=== PATIENT | female | born 1975 | race Two or more races ===

== ENCOUNTER 2017-06-26 09:13 | Emergency (ER) | payer OTHER ==
[~2017-06-26] VITALS: Ht 160 cm; Wt 56.7 kg
[~2017-06-26 09:13] MED LIST: NO TOMA MEDICAMENTOS; ORPH100T PO; SEPTRA DS PO; TORADOL60 MG IM; URETRON D-S TAB1 TAB PO; VOLTAREM 75 MG PO
[2017-06-26] MEDS ORDERED: ACYCLOVIR800 MG PO (09:55)
[2017-06-26] MEDS ORDERED: BENADRYL25 MG PO (09:55)
[2017-06-26] MEDS ORDERED: KETO10TA2 PO (09:55)
== END 2017-06-26 09:59 | disposition home or self-care (01) ==
LOC: ER 09:13
DX: B02.9 Zoster without complications (principal)

== ENCOUNTER 2017-07-22 16:14 | Emergency (ER) | payer OTHER ==
[~2017-07-22] VITALS: Ht 157.5 cm; Wt 54.4 kg
[~2017-07-22 16:14] MED LIST changes: +ACYCLOVIR800 MG PO; +BENADRYL25 MG PO; +KETO10TA2 PO
== END 2017-07-22 21:35 | disposition home or self-care (01) ==
LOC: ER 16:14
DX: J06.9 Acute upper respiratory infection, unspecified (principal); B34.9 Viral infection, unspecified

== ENCOUNTER 2017-08-19 07:25 | Emergency (ER) | payer OTHER ==
[~2017-08-19] VITALS: Ht 157.5 cm; Wt 56.7 kg
== END 2017-08-19 08:31 | disposition home or self-care (01) ==
LOC: ER 07:25
DX: G24.3 Spasmodic torticollis (principal)

== ENCOUNTER 2024-09-05 14:52 | Emergency (ER) | payer OTHER ==
[~2024-09-05] VITALS: Ht 157.5 cm; Wt 64.4 kg
[2024-09-05] MEDS ORDERED: NORFLEX100MG PO (17:04)
[2024-09-05] MEDS ORDERED: DICLOFENAC SODI75 MG PO (17:04)
[2024-09-05] MEDS ORDERED: KETOROLAC TROMETHAMINE 60 MG VIAL IM ONE (17:15)
[2024-09-05] MEDS ORDERED: ORPHENADRINE CITRATE 30 MG/ML AMPUL IM ONE (17:15)
[2024-09-05] MEDS ORDERED: DEXAMETHASONE SODIUM PHOSPHATE 4 MG/ML VIAL IM ONE (17:15)
== END 2024-09-05 17:37 | disposition home or self-care (01) ==
LOC: ER 15:35
DX: M62.838 Other muscle spasm (principal)